=== PATIENT | female | born 1960 | race Caucasian/White ===

== ENCOUNTER 2017-04-14 03:07 | Emergency (ER) | payer BC ==
[~2017-04-14] VITALS: Ht 154.9 cm; Wt 56.7 kg
[~2017-04-14 03:07] MED LIST: CLC500CT PO; MAGN250T7 PO; MULT-608 PO; NAPR250T34 PO
[2017-04-14 03:27] LABS: BILIRUBIN,URINE NEGATIVE (NEGATIVE); KETONES,URINE NEGATIVE (NEGATIVE); LEUKOCYTE ESTERASE ,URINE 3+ (NEGATIVE); NITRITE,URINE NEGATIVE (NEGATIVE); PH,URINE 8 (5-9); PROTEIN,URINE 3+ (NEGATIVE); UROBILINOGEN,URINE NORMAL (NORMAL)
--- NOTE | 2017-04-14 03:36 | ED GU-Female ---
General Chief Complaint: -Female Stated Complaint: POSS BLADDER INFECT BLOOD IN URINE Nursing Triage Note: c/o dysuria, hematuria, frequency and not empyting her bladder starting at 0200 Nursing Sepsis Screen: No Definite Risk Source: patient History of Present Illness Time seen by provider: 03:20 Initial Comments PT STATES RIGHT BEFORE SHE WENT TO BED AT 2300, SHE HAD MILD PAIN ON URINATION SHE WOKE UP AT 0200 AND URINATED, AND HAD SEVERE PAIN/BURNING ON URINATION, MUCH URGENCY, FREQUENCY, FEELING LIKE HER BLADDER IS FULL/INCOMPLETE EMPTYING, AND HAS HAD BLOOD IN URINE NO ABDOMINAL PAIN OR BACK PAIN NO FEVER NO NAUSEA/VOMITING NO HISTORY OF UTI'S OR KIDNEY STONES. PCP:DR. JUNG Allergies and Home Medications Allergies Coded Allergies: No Known Drug Allergies (Unverified , 08/01/10) Home Medications No Active Prescriptions or Reported Meds Constitutional: no symptoms reported Respiratory: no symptoms reported Cardiovascular: no symptoms reported Gastrointestinal: no symptoms reported Genitourinary: see HPI, burning, dysuria, frequency, denies flank pain, hematuria, denies incontinence, pain, urgency : No (MENOPAUSAL) Musculoskeletal: no symptoms reported, No back pain Skin: no symptoms reported Psychiatric/Neurological: No Symptoms Reported Endocrine: No Symptoms Reported Hematologic/Lymphatic: No Symptoms Reported Past Vtzqrbk-Ansyxg-Umrxoz Hx Patient Social History Alcohol Use: Denies Use Recreational Drug Use: No Smoking Status: Never a Smoker Recent Foreign Travel: No Contact w/Someone Who Travel: No Recent Infectious Disease Expo: No Surgeries History of Surgeries: Yes (OVARIAN CYST REMOVAL. BILATERAL CARPAL TUNNEL, C- SECTION X 1) Surgeries: Section, Orthopedic Respiratory History of Respiratory Disorde: No Cardiovascular History of Cardiac Disorders: No Neurological History of Neurological Disord: No Reproductive System : No Female Reproductive Disorders: Ovarian Cyst CELL TUBER MACHINE History: Menopausal Genitourinary History of Genitourinary Disor: No Gastrointestinal History of Gastrointestinal Di: No Musculoskeletal History of Musculoskeletal Dis: Yes (RHEUMATOID; OSTEO ARTHRITIS) Musculoskeletal Disorders: Arthritis Endocrine History of Endocrine Disorders: No HEENT History of HEENT Disorders: No Cancer History of Cancer: No Psychosocial History of Psychiatric Problem: No Integumentary History of Skin or Integumenta: No Physical Exam Vital Signs Vital Sign - Last 12Hours 04/14/17 03:10 Temp 98.0 Pulse 85 Resp 18 B/P (MAP) 142/93 Pulse Ox 98 Capillary Refill : Less Than 3 Seconds General Appearance: WD/WN, no apparent distress Cardiovascular: regular rate, rhythm, no murmur Respiratory: normal breath sounds, no respiratory distress, no accessory muscle use Gastrointestinal: normal bowel sounds, soft, no organomegaly, no pulsatile mass , No distended, No guarding, No rebound, tenderness (PRESSURE OVER BLADDER AND URGE TO URINATE ON PALPATION OF SUPRAPUBIC AREA) Back: normal inspection, no CVA tenderness Extremities: normal inspection, no pedal edema, no calf tenderness, normal capillary refill Neurologic/Psychiatric: body masker II-XII nml as tested, no motor/sensory deficits, alert, normal mood/affect, oriented x 3 Skin: normal color, warm/dry Progress/Results/Core Measures Suspected Sepsis Recent Fever Within 48 Hours: No Infection Criteria Present: None New/Unexplained Altered Menta: No Sepsis Screen: No Definite Risk Sepsis Diagnosis: SIRS Temperature:98.0 Pulse: 85 Respiratory Rate: 18 Blood Pressure 142 /93 Mean: 109 Results/Orders Lab Results Laboratory Tests Test 04/14/17 03:15 Range/Units Urine Color RED H Urine Clarity CLOUDY H Urine pH 8 5-9 Urine Specific [place] 1.010 L 1.016-1.022 Urine Protein 3+ H NEGATIVE Urine Glucose (UA) NEGATIVE NEGATIVE Urine Ketones NEGATIVE NEGATIVE Urine Nitrite NEGATIVE NEGATIVE Urine Bilirubin NEGATIVE NEGATIVE Urine Urobilinogen NORMAL NORMAL MG/DL Urine Leukocyte Esterase 3+ H NEGATIVE Urine RBC (Auto) 5+ H NEGATIVE Urine RBC TNTC H /HPF Urine WBC 10-25 H /HPF Urine Crystals NONE /LPF Urine Bacteria MODERATE H /HPF Urine Casts NONE /LPF Urine Mucus NEGATIVE /LPF Urine Culture Indicated YES My Orders Orders - ANGEL LISA DO Ua Culture If Indicated (04/14/17 03:15) Urine Culture (04/14/17 03:15) Rx-Nitrofurantoin Dickinson (Rx-Macrobid) (04/14/17 03:41) Phenazopyridine Tablet (Pyridium Tablet) (04/14/17 03:45) Vital Signs/I&O Vital Sign - Last 12Hours 04/14/17 03:10 Temp 98.0 Pulse 85 Resp 18 B/P (MAP) 142/93 Pulse Ox 98 Capillary Refill : Less Than 3 Seconds Blood Pressure Mean: 109 Progress Note : Progress Note PT ADVISED TO RETURN TO ER IF SYMPTOMS WORSEN, SUCH FEVER, ABDOMINAL OR BACK PAIN, NAUSEA, VOMITING, ETC. Departure Impression Impression: Primary Impression: Urinary tract infection Additional Impression: Hemorrhagic cystitis Disposition: HOME, SELF-CARE Condition: Stable Departure-Patient Inst. Referrals: PALMA JUNG MD (PCP/Family) Primary Care Physician Patient Instructions: Urinary Tract Infection, Adult (DC) Add. Discharge Instructions: LOTS OF CLEAR LIQUIDS--NO COFFEE, POP OR TEA TYLENOL AND MOTRIN NEEDED FOR PAIN OR FEVER FOLLOW UP WITH DR. JUNG IN 2-3 DAYS IF NO BETTER, RETURN TO ER IF WORSE All discharge instructions reviewed with patient and/or family. Voiced understanding. Scripts Phenazopyridine HCl (Pyridium) 200 Mg Tablet 1 TAB PO TID for BLADDER DISCOMFORT, #15 TAB Prov: ANGEL LISA DO 04/14/17 Nitrofurantoin Monohyd/M-Cryst (Macrobid 100 mg Capsule) 100 Mg Capsule 100 MG PO BID, #20 CAP Prov: ANGEL LISA DO 04/14/17 ANGEL LISA DO Apr 14, 2017 03:36
[2017-04-14] MEDS ORDERED: RX-NITROFURANTOIN 100 MG (MACROBID) CAP PPK#2 PO STA (03:41)
[2017-04-14] MEDS ORDERED: PHENAZOPYRIDINE 100 MG (PYRIDIUM) TABLET PO ONE (03:45)
[2017-04-14] MEDS ORDERED: PHENAZOPYRIDINE 100 MG (PYRIDIUM) TABLET ONE (03:46)
[2017-04-14] MEDS ORDERED: RX-NITROFURANTOIN 100 MG (MACROBID) CAP PPK#2 PO ONE (03:46)
[2017-04-14] MEDS ORDERED: NITR-65 PO (03:50)
[2017-04-14] MEDS ORDERED: PHEN-640 PO (03:50)
[2017-04-14 03:59] VITALS: BP 142/93
== END 2017-04-14 03:58 | disposition home or self-care (01) ==
LOC: EDUNIT# 03:07 → ER 03:09
DX: N39.0 Urinary tract infection, site not specified (principal); N83.209 Unspecified ovarian cyst, unspecified side; M06.9 Rheumatoid arthritis, unspecified; Z87.59 Personal history of other complications of pregnancy, childbirth and the puerperium
CPT/HCPCS: 81000; 87088; 87186; 99283

== ENCOUNTER 2017-09-05 05:40 | Outpatient (CLI) | payer BC ==
[~2017-09-05] VITALS: Ht 154.9 cm; Wt 59.0 kg
[~2017-09-05 05:40] MED LIST changes: +NITR-65 PO; +PHEN-640 PO
[2017-09-05] MEDS ORDERED: ASCO500C17 PO (13:29)
[2017-09-05] MEDS ORDERED: OMEG-109 PO (13:29)
[2017-09-05] MEDS ORDERED: MULT-35 PO (13:29)
[2017-09-05] MEDS ORDERED: MAGN400T39 PO (13:29)
== END 2017-09-05 13:35 ==
LOC: PREOP 05:40
PROVIDERS: ATTEND Surgery
DX: Z01.818 Encounter for other preprocedural examination (principal); Z12.11 Encounter for screening for malignant neoplasm of colon; Z80.0 Family history of malignant neoplasm of digestive organs; K21.9 Gastro-esophageal reflux disease without esophagitis

== ENCOUNTER 2017-09-11 09:55 | Day surgery (SDC) | payer BC ==
[~2017-09-11] VITALS: Ht 154.9 cm; Wt 59.0 kg
[~2017-09-11 09:55] MED LIST changes: +ASCO500C17 PO; +MAGN400T39 PO; +MULT-35 PO; +OMEG-109 PO
[2017-09-11] MEDS ORDERED: LIDOCAINE JELLY 2% (XYLOCAINE) 5 ML TUBE ONE (10:04)
[2017-09-11] MEDS ORDERED: MIDAZOLAM 2 MG/2 ML (VERSED) VIAL ONE ×5 (10:04→11:26)
[2017-09-11] MEDS ORDERED: fentaNYL INJECTION 100 MCG/2 ML AMP ONE ×3 (10:04→11:26)
[2017-09-11] MEDS ORDERED: HURRICAINE EXT TUBE (BENZOCAINE) ONE (10:05)
[2017-09-11] MEDS ORDERED: NS IV 500 ML 500 ML ONE (10:07)
[2017-09-11 10:15] VITALS: BP 135/76
--- NOTE | 2017-09-11 10:54 | Conscious Sedation/ASA ---
Conscious Sedation Pre-Proced Time Reviewed: 10:45 ASA Class: 2 Airway Mallampati Classification: (mentasta appropriate class) I. II. III, IV Lungs Heart ASA score ASA 1: a normal healthy patient ASA 2: a patient with a mild systemic disease (mid diabetes, controlled hypertension, obesity ASA 3: a patient with a severe systemic disease that limits activity (angina , COPD, prior Myocardial infarction) ASA 4: a patient with an incapacitating disease that is a constant threat to life (CHF, renal failure) ASA 5: a moribund patient not expected to survive 24 hrs. (ruptured aneurysm) ASA 6: a declared brain patient whose organs are being harvested. For emergent operations, add the letter E after the classification Grade 2 Sedation Plan: Analgesia, Amnesia, Plan communicated to team members, Discussed options with patient/fam, Discussed risks with patient/fam Note The patient is an appropriate candidate to undergo the planned procedure, sedation, and anesthesia. The patient immediately re-assessed prior to indication. MARCUS KOWALSKI MD Sep 11, 2017 10:54 am
[2017-09-11] MEDS: fentaNYL INJECTION 100 MCG/2 ML AMP IVP PRN ×6 (10:55→11:39)
--- NOTE | 2017-09-11 10:55 | Progress Note-Pre Operative ---
Pre-Operative Progress Note H&P Reviewed The H&P was reviewed, patient examined and no changes noted. Date Seen by Provider: Sep 11, 2017 Time Seen by Provider: 10:45 Date H&P Reviewed: Sep 11, 2017 Time H&P Reviewed: :45 Pre-Operative Diagnosis: GERD, family hx colon ca MARCUS KOWALSKI MD Sep 11, 2017 10:55 am
[2017-09-11] MEDS ORDERED: MIDAZOLAM 2 MG/2 ML (VERSED) VIAL IVP PRN (11:00)
[2017-09-11] MEDS ORDERED: FLUMAZENIL (ROMAZICON) 0.1 MG/ML 5 ML VIAL INJ PRN (11:00)
[2017-09-11] MEDS ORDERED: HYDROcodone/APAP 5 MG/325 MG (LORTAB) TAB PO PRN (11:00)
[2017-09-11] MEDS ORDERED: NALOXONE 0.4 MG/ML 1 ML (NARCAN) VIAL IVP PRN (11:00)
[2017-09-11] MEDS ORDERED: fentaNYL INJECTION 100 MCG/2 ML AMP IVP PRN (11:00)
[2017-09-11] MEDS ORDERED: ACETAMINOPHEN 325 MG TABLET PO PRN (11:00)
[2017-09-11] MEDS ORDERED: morphine INJ 10 MG/ML 1ML (SYR OR VIAL) IV PRN (11:00)
[2017-09-11] MEDS ORDERED: LIDOCAINE JELLY 2% (XYLOCAINE) 5 ML TUBE MM PRN (11:00)
[2017-09-11] MEDS ORDERED: ONDANSETRON 4 MG/2 ML (SDV) Z0FRAN IV PRN (11:00)
[2017-09-11] MEDS ORDERED: HURRICAINE EXT TUBE (BENZOCAINE) XX PRN (11:00)
[2017-09-11] MEDS: MIDAZOLAM 2 MG/2 ML (VERSED) VIAL IVP PRN ×5 (11:10→11:37)
--- NOTE | 2017-09-11 11:54 | Progress Note-Post Operative ---
Post-Operative Progess Note Surgeon (s)/Digital Solution Architect (s) Surgeon MARCUS KOWALSKI MD Digital Solution Architect: none Pre-Operative Diagnosis GERD, family hx colon ca Post-Operative Diagnosis reflux esophagitis(B), no HH, mild gastritis. chronic stage 2 ext and int hemorrhoids. Procedure & Operative Findings Date of Procedure 09/11/17 Procedure Performed/Findings EGD with bx. Colonoscopy. Anesthesia Type CS Estimated Blood Loss Estimated blood loss (mL): minimal Specimens/Packing Specimens Removed GE jxn, antrum MARCUS KOWALSKI MD Sep 11, 2017 11:54 am
[2017-09-11] MEDS ORDERED: PANT40TA2 PO (11:55)
--- NOTE | 2017-09-11 11:56 | Discharge Inst-Surgical ---
D/C Lap Instructions-KIDO New, Converted, or Re-Newed RX: RX on Chart Follow Up 5 yrs Activity as tolerated High Fiber Diet 25g or more per day Avoid Alcohol, Caffeine, Spicy Novelty and Acid foods. Drink 64 fluid oz or more of fluids per day. Symptoms to Report: Fever over 101 degree F, Nausea/Vomiting If any problems/questions: Contact your physician or go to Emergency Room MARCUS KOWALSKI MD Sep 11, 2017 11:56 am
[2017-09-11] MEDS ORDERED: NS IV 500 ML 500 ML IV SCH (12:30)
[2017-09-11 12:50] VITALS: BP 114/75
[2017-09-11 12:58] VITALS: BP 114/75
--- NOTE | 2017-09-11 19:48 | OPERATIVE REPORT ---
DATE OF SERVICE: 09/11/2017 ATTENDING PRIMARY CARE PHYSICIAN: Dr. Ahuja. PREOPERATIVE DIAGNOSES: 1. Gastroesophageal reflux disease. 2. Family history of colon cancer. POSTOPERATIVE DIAGNOSES: 1. Reflux esophagitis class B. 2. Mild gastritis. 3. Chronic stage II external and internal hemorrhoids. PROCEDURE: Esophagogastroduodenoscopy with biopsy, colonoscopy. SURGEON: Dr. Kowalski. ANESTHESIA: Conscious sedation. ESTIMATED BLOOD LOSS: Minimal. FINDINGS: EGD, reflux esophagitis class B. No ulcers or strictures. No significant hiatal hernia. Mild to moderate gastritis. Pylorus and duodenum appeared normal. Colonoscopy, chronic stage II external and internal hemorrhoids, not actively edematous nor inflamed and no bleeding. The remainder of the rectum and colon were normal. There were no polyps or any neoplasms identified. DISPOSITION: The patient tolerated the procedure well. INDICATIONS: The patient is a 56-year-old female, who has had episodes of reflux and regurgitation. She reports that she has had this for a significant amount of time; however, this has worsened in the past several months. She is currently on Nexium. She has also needed a screening colonoscopy. Her last colonoscopy was in 2010 and she remembers this to be normal. She does have a family history of colon cancer with her paternal grandmother having the disease. DESCRIPTION OF PROCEDURE: The patient was brought to the endoscopy suite, laid in the left lateral decubitus position. After adequate IV pain and sedating medications and conscious sedation anesthesia, the mouthpiece was applied. Endoscope was placed in the mouth, visualizing the pharynx and hypopharyngeal region. Vocal cords, epiglottis and vallecula identified and appeared to be normal. The endoscope was then gently intubated at the esophageal opening, esophagus insufflated. Endoscope was then advanced to the first, second and third portions of the esophagus at the level of the GE junction, a reflux esophagitis class B identified. There were no ulcers or strictures identified in this region. A biopsy was taken with forceps with visualization of good hemostasis. The endoscope was then advanced in the stomach. The endoscope retroflexed visualizing no significant hiatal hernia. There was a mild to moderate gastritis, no ulcers, polyps or any neoplasms identified. A biopsy was taken of the stomach antrum for H. pylori with visualization of good hemostasis. The endoscope was then advanced to the pylorus and the first and second portion of the duodenum, which appeared normal with no distal obstructions. The endoscope was then slowly withdrawn with taking a second look and suctioning of residual air with no additional findings. The patient tolerated this portion of the procedure well. We will recommend the necessary lifestyle and diet accommodation including small and more frequent meals, avoidance of eating at night as well as head elevation while laying supine. She also needs to avoid caffeinated beverages, spicy, greasy and acidic foods. It appears that the Nexium was initially effective; however, has become less effective over time and we will proceed with a trial of pantoprazole 40 mg daily. Under the same conscious sedation anesthesia, we then proceeded with the colonoscopy portion procedure. A digital rectal examination was performed, which revealed chronic stage II external and internal hemorrhoids, not actively edematous nor inflamed and no bleeding. Normal sphincter tone was felt and there were no palpable masses. The endoscope was then intubated. The anus and rectum gently insufflated. The endoscope was then advanced through the valves of Eric of the rectum with no polyps or any neoplasms identified. Endoscope was then advanced through the sigmoid colon where no diverticulosis identified. The endoscope was then advanced to the remainder of the descending, transverse, and ascending colon to the cecum. These segments were normal. There were no polyps or any neoplasms identified throughout the colon or rectum. The endoscope was then slowly withdrawn with taking a second look and suctioning of residual air with no additional findings. The patient tolerated the procedure well. We will recommend continued medical management with a high fiber diet with at least 25 grams of fiber per day as well as at least 64 fluid ounces of water daily to promote soft stools on a daily basis. She does have a family history of colon cancer; however, she does not have any first degree relatives with a history of colon cancer and if she is asymptomatic, she may wait 10 years for her next colonoscopy. Job ID: [id number] DocumentID: [id number] Dictated Date: 09/11/2017 12:02:33 Pin Inserter Regulator Date: 09/11/2017 19:47:35 Dictated By: MARCUS KOWALSKI MD
== END 2017-09-11 13:30 | disposition home or self-care (01) ==
LOC: ENDO 09:55
PROVIDERS: ATTEND Surgery
DX: K21.0 Gastro-esophageal reflux disease with esophagitis (principal); K29.70 Gastritis, unspecified, without bleeding; K64.1 Second degree hemorrhoids; Z80.0 Family history of malignant neoplasm of digestive organs; K59.00 Constipation, unspecified; Z79.899 Other long term (current) drug therapy
CPT/HCPCS: 88305

== ENCOUNTER → 2021-06-09 | Outpatient (CLI) | payer BC ==
[~2021-06-09] MED LIST changes: +PANT40TA2 PO
--- NOTE | 2021-06-09 13:12 | Diagnostic Imaging Report ---
INDICATION: Low back pain. TIME OF EXAM: 11:19 a.m. COMPARISON: Correlation is made with prior radiographs from 09/21/2014. FINDINGS: A calcific density overlies the upper pole of the right kidney. A renal calculus cannot be entirely excluded. Curvature of the lumbar spine is normal. There is anterolisthesis of L4 on L5, similar to prior study. Vertebral body heights are maintained. No acute compression fracture is seen. There is degenerative disc disease at the L4-L5 and L5-S1 levels. IMPRESSION: 1. Lower lumbar spondylosis and spondylolisthesis. No acute bony abnormality is seen. 2. Possible right renal calculus. Dictated by: Dictated on workstation # [id number]
== END ==
LOC: RAD 10:42
PROVIDERS: ATTEND Nurse Practitioner Family
DX: M47.816 Spondylosis without myelopathy or radiculopathy, lumbar region (principal); M43.16 Spondylolisthesis, lumbar region
CPT/HCPCS: 72100

== ENCOUNTER → 2021-07-07 | Outpatient (CLI) | payer BC ==
--- NOTE | 2021-07-07 09:55 | Diagnostic Imaging Report ---
PROCEDURE: MRI lumbar spine without contrast. TECHNIQUE: Multiplanar, multisequence MRI of the lumbar spine was performed without contrast. INDICATION: Low back pain. COMPARISON: 10/01/2014. FINDINGS: 5 lumbar type vertebral bodies are visualized with the last well-formed disc space designated L5-S1. No acute fracture or dislocation is seen in the lumbar spine. There is grade 2 anterolisthesis of L4 on L5, increased since the prior exam. Vertebral body heights are well-maintained. The bone marrow signal is normal. The conus terminates at the L1 level. No masses are seen associated with the conus or nerve roots of the cauda equina. No epidural collections are identified. Multilevel degenerative changes are seen in the lumbar spine with disc bulges, facet hypertrophy, and buckling of the ligamentum flavum. T12-L1: No significant spinal canal or foraminal stenosis. L1-L2: No significant spinal canal or foraminal stenosis. L2-L3: Buckling of the ligamentum flavum results in no significant spinal canal narrowing and mild bilateral foraminal narrowing. L3-L4: Buckling of the ligamentum flavum results in no significant spinal canal narrowing and mild to moderate bilateral foraminal narrowing. L4-L5: Broad-based disc bulge, facet hypertrophy, and buckling of the ligamentum flavum results in severe spinal canal stenosis and moderate bilateral foraminal stenosis. L5-S1: Broad-based disc bulge, facet hypertrophy, and buckling of the ligamentum flavum results in moderate spinal canal stenosis and [id number] bilateral foraminal stenosis. Paravertebral soft tissues are unremarkable. IMPRESSION: 1. No acute fracture or dislocation in the lumbar spine. 2. Multilevel degenerative changes in the lumbar spine, greatest at L4-L5 and L5-S1. These have progressed since the prior exam. 3. Grade 2 anterolisthesis of L4 on L5, increased since the prior exam. Dictated by: Dictated on workstation # [id number]
== END ==
LOC: RAD 08:45
PROVIDERS: ATTEND Nurse Practitioner Family
DX: M47.817 Spondylosis without myelopathy or radiculopathy, lumbosacral region (principal); M43.16 Spondylolisthesis, lumbar region
CPT/HCPCS: 72148

== ENCOUNTER → 2021-09-04 | Outpatient (CLI) | payer BC ==
--- NOTE | 2021-09-04 16:45 | Diagnostic Imaging Report ---
INDICATION: Back pain EXAM: Lumbar spine TECHNIQUE: AP and lateral views of the lumbar spine were obtained. FINDINGS: Lateral flexion and extension views were obtained. There is a grade 2 spondylolisthesis at L4-L5 with disc space narrowing at that level. Other vertebrae are in normal alignment with normal intervertebral disc spaces. There are no compression fractures. IMPRESSION: Grade 2 spondylolisthesis at L4-L5. This is not significantly changed compared to exam dated 06/09/2021. There is no evidence of L4-L5 displacement between flexion or extension positions. Dictated by: Dictated on workstation # [id number]
== END ==
LOC: RAD 13:03
PROVIDERS: ATTEND Nurse Practitioner Family
DX: M43.16 Spondylolisthesis, lumbar region (principal)
CPT/HCPCS: 72100; 72110